=== PATIENT | male | born 1950 | race Caucasian/White ===

== ENCOUNTER 2020-06-02 06:17 | Outpatient (RCR) | payer MEDICARE, SELFPAY ==
[2020-06-02] MEDS: COVID-19 VACC, MRNA(PFIZER)/PF 30 MCG/0.3 ML SYRINGE IM (08:17)
[2020-06-23] MEDS: COVID-19 VACC, MRNA(PFIZER)/PF 30 MCG/0.3 ML SYRINGE IM (08:08)
== END 2020-09-01 23:59 ==
LOC: IMMUN 06:17
PROVIDERS: PCP Family Medicine; Referring Provider Family Medicine; Visit Provider Family Medicine
DX: Z23 Encounter for immunization (principal)
CPT/HCPCS: 0001A; 0002A; 91300

== ENCOUNTER → 2020-11-24 09:56 | Outpatient (CLI) | payer MEDICARE, SELFPAY ==
[2020-11-24 12:12] LABS: Absolute Lymphocyte Count 1.66 X10^3/uL (0.83-4.51); Absolute Neutrophil Count 3.1 X10^3/uL (2.0-7.7); Basophil# 0.05 X10^3/uL; Basophil% 0.9 % (0-1); Eosinophils% 1.9 % (0-5); Hematocrit 39.7 % (40-54); Hemoglobin 12.8 g/dL (13.0-16.5); Lymphocyte # 1.66 X10^3/ul (0.83-4.51); Mean Corp Hgb Conc 32.2 g/dL (32-36); Mean Corpuscular Hgb 30.3 pg (27.0-32.0); Mean Corpuscular Volume 93.9 fL (80-94); Mean Platelet Vol. 9.3 fl (6.2-12.0); Monocyte# 0.41 X10^3/uL; Monocyte% 7.7 % (0-10); NRBC Flagged by Analyzer 0 % (0-5); Neutrophil # 3.11 X10^3/uL (2.7-7.7); Neutrophil % 58.1 % (47-70); Platelet Count 356 K/mm3 (150-450); RBC Distribution Width CV 13.6 % (11.6-14.6); RBC Distribution Width SD 46.6 fl (35.1-43.9); Red Blood Count 4.23 M/mm3 (4.6-6.2); White Blood Count 5.4 K/mm3 (4.4-11.0)
[2020-11-24 12:31] LABS: AST(SGOT) 14 U/L (15-37); Alanine Aminotransfer ALT/SGPT 19 U/L (16-61); Albumin, Serum 3.8 g/dL (3.2-5.0); Alkaline Phosphatase 109 U/L (45-117); Anion Gap 2 (5-15); BUN 15 mg/dL (7-18); BUN/Creat Ratio 10.4 RATIO (10-20); Chloride 109 mmol/L (98-107); Cholesterol 193 mg/dL (200); Creatinine, Serum 1.44 mg/dL (0.70-1.30); EST Glomerular Filtration Rate 51 mL/min (>60); Est Glom Filt Rate - Afr Amer 62 mL/min (>60); Globulin 3.7 g/dL (2.2-4.2); Glucose 85 mg/dL (74-106); High Density Lipoprotein 54 mg/dL; Potassium 4.6 mmol/L (3.5-5.1); Protein, Total 7.5 g/dL (6.4-8.2); Sodium Level 141 mmol/L (136-145); Triglycerides 99 mg/dL; Very Low Density Lipoprotein 20 mg/dL (5-40)
== END ==
PROVIDERS: PCP Family Medicine; Visit Provider Family Medicine
DX: E66.3 Overweight (principal); Z13.1 Encounter for screening for diabetes mellitus; R10.9 Unspecified abdominal pain
CPT/HCPCS: 36415; 80053; 80061; 85025

== ENCOUNTER 2021-05-10 11:17 | Outpatient (CLI) | payer MEDICARE, SELFPAY ==
[2021-05-10 12:52] LABS: PSA,Total - Annual Screen 1.33 ng/mL (0.00-4.00)
== END 2021-05-10 23:59 | disposition home or self-care (01) ==
LOC: MFPLAB 11:18
PROVIDERS: Nurse Practitioner Family; PCP Family Medicine; Visit Provider Family Medicine
DX: Z12.5 Encounter for screening for malignant neoplasm of prostate (principal)
CPT/HCPCS: 36415; 84153; G0103

== ENCOUNTER 2022-12-18 14:32 | Emergency (ER) | payer MEDICARE, MEDICAID, SELFPAY ==
[2022-12-18 14:35] VITALS: BP 135/91; PULSE 83; RESP 18; TEMP 37.1; O2SAT 99; BMI 23.8
--- NOTE | 2022-12-18 15:01 | CT_ITS ---
STUDY: CT ABDOMEN AND PELVIS WITH CONTRAST REASON FOR EXAM: Male, 72 years old. abdominal pain RADIATION DOSAGE (If Supplied By Facility): CTDIvol = ( 15.48 ) mGy, DLP = ( 700.00 ) mGycm TECHNIQUE: Transaxial images were obtained from the dome of the diaphragm to the symphysis pubis without oral contrast. IV 100mL Isovue-370 was administered. Sagittal and coronal images were reconstructed. Individualized dose optimization techniques were used for this CT. COMPARISON: None. FINDINGS: The visualized lung bases are unremarkable. The visualized portions of the heart are within normal limits. Normal liver. Normal gallbladder and extrahepatic biliary system. Normal spleen. Normal pancreas. Normal bilateral adrenal glands. Bilateral nonobstructing renal stones. 2 mm obstructing stone at the left ureterovesical junction with mild ureteral dilatation and hydronephrosis. Normal visualized stomach. Normal small intestine. Normal colon. The appendix is visualized and appears normal. Normal abdominal aorta. Normal inferior vena cava. Normal retroperitoneum. Normal urinary bladder. There are prostatic calcifications. Normal abdominal wall. Normal osseous structures. CT/Abdomen/Pelvis W IV Cont ONLY IMPRESSION: 2 mm obstructing stone at the left ureterovesical junction with mild ureteral dilatation and hydronephrosis. Electronically Signed: Ferdinand Roberts MD at 17:10 EDT ,
--- NOTE | 2022-12-18 15:02 | EDS_ITS ---
HPI History of Present Illness Chief Complaint: Abd Pain Informant: patient and family Narrative Narrative: 32-year-old male presenting to the emergency room for the chief complaint of abdominal pain. Patient states he has had kidney stones in the past but not for at least 10 years. He notes over the past 4 weeks he has been dealing with increased gas and constipation. He has been treating at home with Gas-X and stool softeners. Had an appointment with his doctor but missed it. The patient notes that since this morning at around 0700 hrs. she has had pretty significant suprapubic left lower quadrant pain. He denies any melena/bright red blood. He denies any hematuria or testicular pain. He denies fevers. No nausea vomiting. Pain is nonradiating. He does feel bloated. He denies history of diverticulitis or colitis. His only abdominal surgery of note was in the 1970s for a kidney stone. [facility] Medical History (Updated 12/18/22 @ 17:[address] Primitivo Aviles DO) Kidney stone Home Medications docusate sodium 100 mg capsule (Colace) 100 mg PO DAILY #30 caps 12/18/22 [Rx Last Taken Unknown] oxycodone-acetaminophen 5 mg-325 mg tablet 1 tab PO Q6H PRN PRN Pain 3 days #12 TABLETS 12/18/22 [Rx Last Taken Unknown] Allergy/AdvReac Type Severity Reaction Status Date / Time Penicillins Allergy PT UNSURE Verified 12/18/22 14:34 OF REACTION Social History Smoking Status: Never smoker ROS ROS ED Constitutional Constitutional ED: Denies chills, fever(s) or weight loss Eyes Eyes: Denies change in vision or diplopia ENT ENT ED: Denies ear pain, rhinorrhea or sore throat Cardiovascular Cardiovascular: Denies chest pain, orthopnea, palpitations or racing heartbeat Respiratory/Chest Respiratory/Chest: Denies cough, dyspnea or orthopnea Gastrointestinal Gastrointestinal: Reports abdominal pain, constipation and nausea; Denies diarrhea, melena or vomiting Genitourinary Genitourinary ED: Denies dysuria, hematuria or urinary frequency Musculoskeletal Musculoskeletal: Denies arthralgias or myalgias Integumentary Denies abscess or rash Neurologic Neurologic: Denies headache(s) or weakness Psychiatric Psychiatric: Denies anxiety, depression, suicidal ideation or suicidal thoughts Endocrine Endocrinology: Denies polydipsia, polyphagia or polyuria Allergic/Immunologic Allergic/Immunologic ED: Denies mouth swelling, tongue swelling or urticaria EXAM Physical Exam Const Vital Signs: 12/18/22 14:35 12/18/22 18:03 Temperature 98.7 F Temperature Source Temporal Pulse Rate 83 80 Respiratory Rate 18 17 Blood Pressure 135/91 H 139/74 H Blood Pressure Mean 105 Pulse Ox 99 97 Oxygen Delivery Method Room Air Positive well nourished and well developed General Appearance ED: well developed HEENT Reports normocephalic, head/scalp atraumatic and moist mucous membranes Eyes PERRL and EOMs intact bilaterally Neck no lymphadenopathy, supple and no JVD Resp normal respiratory effort and clear to auscultation bilaterally Cardio regular rate, regular rhythm and no murmurs GI non-distended; Negative for hepatosplenomegaly or no masses Inspection: Negative for abdominal distention Auscultation: normoactive bowel sounds Palpation: soft, tender LLQ and suprapubic, guarding and rebound tenderness present Back/Spine no CVA tenderness and normal ROM Extremity normal to inspection General Extremety ED: Negative for edema General Extremity: Negative for edema Neuro oriented x3 and CN's II-XII intact bilaterally Sensorium / Orientation: alert Motor Exam: strength 5/5 throughout Psych mental status grossly normal Mood & Affect: Negative for depressed or tearful Skin no rashes or lesions noted and no wounds MDM MDM MDM Narrative Medical decision making narrative: Patient's white count is 8.3 with a hemoglobin of 12.6. Creatinine 1.59 with a BUN of 23. Lipase is 51 liver enzymes normal. Patient received morphine Zofran and fluids. CT of the abdomen pelvis with IV contrast was obtained. This was consistent with a distal 2 mm left ureteral stone with some mild hydronephrosis hydroureter. Patient was reassessed and is doing better. Discussed with the patient follow- up for the kidney stone but also for his constipation. I suggested he start with a daily Colace and adjust therapy from there. He should follow-up with primary care. I gave him urologic follow-up. I did advise that perhaps she should visit for a colonoscopy. Lab Data Attestation: I reviewed the patient's lab results. Labs: Laboratory Results - last 24 hr 12/18/22 12/18/22 15:17 17:20 WBC 8.3 RBC 4.14 L Hgb 12.6 L Hct 38.6 L MCV 93.2 MCH 30.4 MCHC 32.6 RDW Std Deviation 46.2 H RDW Coeff of Yoel 13.5 Plt Count 364 MPV 8.8 Immature Gran % (Auto) 0.200 Neut % (Auto) 63.1 Lymph % (Auto) 27.0 [place] % (Auto) 8.3 Eos % (Auto) 0.8 Baso % (Auto) 0.6 Absolute Neuts (auto) 5.2 Absolute Lymphs (auto) 2.24 Nucleated RBC % 0 Sodium 142 Potassium 4.2 Chloride 110 H Carbon Dioxide 26.0 Anion Gap 6 BUN 23 H Creatinine 1.59 H Estim Creat Clear Calc 39.43 Est GFR (MDRD) Af Amer 55 L Est GFR (MDRD) Non-Af 45 L BUN/Creatinine Ratio 14.5 Glucose 86 Calcium 8.8 Total Bilirubin 0.30 Direct Bilirubin 0.11 AST 24 ALT 30 Alkaline Phosphatase 106 Total Protein 7.0 Albumin 3.5 Globulin 3.5 Lipase 51 Urine Color Yellow Urine Clarity Sl. Cloudy Urine pH 7.0 Ur Specific [place] 1.005 Urine Protein 15 H Urine Glucose (UA) Normal Urine Ketones 5 H Urine Occult Blood 150 H Urine Nitrite Negative Urine Bilirubin Negative Urine Urobilinogen Normal Ur Leukocyte Esterase Negative Urine RBC 10-25 SEEN Urine WBC 0 SEEN Ur Squamous Epith Cells 0 SEEN Urine Bacteria 0 SEEN Urine Mucus 0 SEEN Radiography Diagnostic Testing: Clinical Impression(s) from Imaging Studies Abdomen/Pelvis CT 12/18/22 15:01 IMPRESSION: 2 mm obstructing stone at the left ureterovesical junction with mild ureteral dilatation and hydronephrosis. Electronically Signed: Ferdinand Roberts MD at 17:10 EDT , Discharge Plan Triage Chief Complaint: Abd Pain ED Provider: Primitivo Aviles Dx/Rx/DC Orders Clinical Impression: Abdominal pain, acute, Ureterolithiasis, Constipation Instructions: ED Kidney Stone w/ Colic Prescriptions: New docusate sodium [Colace] 100 mg capsule 100 mg PO DAILY Qty: 30 0RF oxycodone-acetaminophen [oxycodone-acetaminophen] 5-325 mg tablet 1 tab PO Q6H PRN PRN (Reason: Pain) 3 Days Qty: 12 0RF Primary Care Provider: Care Physician,No Primary Referrals: Chencho Doyle MD [Med Staff - Active Staff] - 1 Week if not improving (for urology for the kidney stone ) Santhosh Toledo MD [Non-Staff] - As soon as possible Disposition Disposition: Home, Self Care Discharge Date/Time: 12/18/22 18:22
[2022-12-18] MEDS: 0.9% Normal Saline (1000mL) 1,000 ML 1000 ML IV (15:18)
[2022-12-18] MEDS: Ondansetron 4 MG/2 ML Vial IV (15:18)
[2022-12-18 15:26] LABS: Absolute Lymphocyte Count 2.24 X10^3/uL (0.83-4.51); Absolute Neutrophil Count 5.2 X10^3/uL (2.0-7.7); Basophil# 0.05 X10^3/uL; Basophil% 0.6 % (0-1); Eosinophil# 0.07 X10^3/uL; Eosinophils% 0.8 % (0-5); Hematocrit 38.6 % (40-54); Hemoglobin 12.6 g/dL (13.0-16.5); Lymphocyte # 2.24 X10^3/ul (0.83-4.51); Mean Corp Hgb Conc 32.6 g/dL (32-36); Mean Corpuscular Hgb 30.4 pg (27.0-32.0); Mean Corpuscular Volume 93.2 fL (80-94); Mean Platelet Vol. 8.8 fl (6.2-12.0); Monocyte# 0.69 X10^3/uL; Monocyte% 8.3 % (0-10); NRBC Flagged by Analyzer 0 % (0-5); Neutrophil # 5.24 X10^3/uL (2.7-7.7); Neutrophil % 63.1 % (47-70); Platelet Count 364 K/mm3 (150-450); RBC Distribution Width CV 13.5 % (11.6-14.6); RBC Distribution Width SD 46.2 fl (35.1-43.9); Red Blood Count 4.14 M/mm3 (4.6-6.2); White Blood Count 8.3 K/mm3 (4.4-11.0)
[2022-12-18 15:38] LABS: AST(SGOT) 24 U/L (15-37); Alanine Aminotransfer ALT/SGPT 30 U/L (16-61); Albumin, Serum 3.5 g/dL (3.2-5.0); Alkaline Phosphatase 106 U/L (45-117); Anion Gap 6 (5-15); BUN 23 mg/dL (7-18); BUN/Creat Ratio 14.5 RATIO (10-20); Bilirubin, Direct 0.11 mg/dL (0.00-0.30); Calcium,Total 8.8 mg/dL (8.5-10.1); Chloride 110 mmol/L (98-107); Creatinine, Serum 1.59 mg/dL (0.70-1.30); EST Glomerular Filtration Rate 45 mL/min (>60); Est Glom Filt Rate - Afr Amer 55 mL/min (>60); Estimated Creatinine Clearance 39.43 ml/min; Globulin 3.5 g/dL (2.2-4.2); Glucose 86 mg/dL (74-106); Lipase 51 U/L (13-75); Potassium 4.2 mmol/L (3.5-5.1); Sodium Level 142 mmol/L (136-145)
[2022-12-18 17:37] LABS: Bacteria 0 SEEN /hpf (None Seen); Mucous, Urine 0 SEEN /hpf (<or=2+); Squamous Epithelial Cells - UA 0 SEEN /hpf (0-5); White Blood Cells 0 SEEN /hpf (0-5)
[2022-12-18 17:43] LABS: Color, Urine Yellow (Yellow); Glucose, Dipstick Normal (Normal); Ketone-Dipstick 5 mg/dl (Negative); Leukocyte Esterase-Dipstick Negative /ul (Negative); Nitrite-Dipstick Negative (Negative); Occult Blood-Urine 150 /ul (Negative); Protein-Dipstick 15 mg/dl (Negative); Specific Gravity, Urine 1.005 (1.002-1.030); Urine Bilirubin Dipstick Negative (Negative); Urine Clarity Sl. Cloudy (Clear); Urine Urobilinogen Normal (Normal)
[2022-12-18 18:03] VITALS: BP 139/74; PULSE 80; RESP 17; O2SAT 97
[2022-12-18 18:20] LABS: Red Blood Cells-Urine 10-25 SEEN /hpf (0-5)
== END 2022-12-18 18:22 | disposition home or self-care (01) ==
PROVIDERS: Emergency Provider Emergency Medicine; Visit Provider Emergency Medicine
DX: R10.9 Unspecified abdominal pain (principal); N13.2 Hydronephrosis with renal and ureteral calculous obstruction; K59.00 Constipation, unspecified
CPT/HCPCS: 74177; 80048; 80076; 81001; 83690; 85025; 96361; 96374; 99283; J7030; A4216; J2405

== ENCOUNTER 2022-12-20 13:13 | Emergency (ER) | payer MEDICARE, MEDICAID, SELFPAY ==
[2022-12-20 13:14] VITALS: BP 135/79; PULSE 95; RESP 20; TEMP 36.6; O2SAT 98
--- NOTE | 2022-12-20 13:52 | ED.VIS.GI ---
HPI HPI - GI History of Present Illness Chief Complaint: Flank Pain Detail of Chief Complaint: Left flank pain. 2 mm kidney stone in the left diagnosed yesterday. Informant: patient and family Abdominal Pain/Flank Pain Onset: Days Context: Gradual Onset Timing: Continuous Location: Left Flank Current Severity: Moderate Maximum Severity: Moderate Worsened by: Nothing Relieved by: Nothing Nausea/Vomiting/Emesis GI Symptom: Positive for Nausea and Vomiting Onset: Today and Yesterday Severity: Mild Diarrhea/Melena/Hematochezia GI Symptom: Negative for Diarrhea, Melena or Hematochezia Associated Symptoms Associated Symptoms: Negative for Dysuria, Frequency, Hematuria or Urgency Narrative Narrative: 72-year-old male history of kidney stones. Said left flank pain last several days. Was seen yesterday diagnosed with a left ureteral 2 mm calculi. States the pain medication is not controlling his pain. He is also had some nausea and vomiting. He has had a history of kidney stones in the past. He denies any fever. No gross hematuria. Prior similar symptoms: Yes Recent Illness/Hospitalization: No PFSH PFSH Medical History Kidney stone Home Medications docusate sodium 100 mg capsule (Colace) 100 mg PO DAILY #30 caps 12/18/22 [Rx Last Taken Unknown] oxycodone-acetaminophen 5 mg-325 mg tablet 1 tab PO Q6H PRN PRN Pain 3 days #12 TABLETS 12/18/22 [Rx Last Taken Unknown] ondansetron 4 mg disintegrating tablet 4 mg PO Q8H PRN PRN Nausea #10 tabs 12/20/22 [Rx Last Taken Unknown] Allergy/AdvReac Type Severity Reaction Status Date / Time Penicillins Allergy PT UNSURE Verified 12/20/22 13:15 OF REACTION Social History Smoking Status: Never smoker ROS ROS ED ROS Narrative Left flank pain. Nausea and vomiting. Review of Systems ROS Unobtainable: Denies due to encephalopathy Constitutional Constitutional ED: Denies chills or fever(s) ENT ENT ED: Denies ear pain Cardiovascular Cardiovascular: Denies chest pain Respiratory/Chest Respiratory/Chest: Denies cough or dyspnea Gastrointestinal Gastrointestinal: Reports nausea and vomiting; Denies abdominal pain, constipation, diarrhea or melena Genitourinary Genitourinary ED: Denies dysuria or hematuria Musculoskeletal Musculoskeletal: Reports back pain; Denies arthralgias Integumentary Denies abscess or Abrasions Neurologic Neurologic: Denies headache(s) Psychiatric Psychiatric: Denies anxiety or depression Endocrine Endocrinology: Denies polydipsia Hematologic/Lymphatic Hematologic/Lymphatic: Denies easy bleeding Allergic/Immunologic Allergic/Immunologic ED: Denies mouth swelling, tongue swelling or urticaria EXAM Physical Exam Narrative Exam Narrative: 72-year-old male complaining of pain. Vital signs stable afebrile. HEENT exam unremarkable. Neck nontender. Lungs clear to auscultation bilateral. Heart regular rhythm no murmur. Abdomen soft nondistended normal bowel sounds no peritoneal signs. Moving all 4 extremities. Calves nontender tender no edema. Neurologically is awake and alert. Complains of left flank pain is not reproducible. Const Vital Signs: 12/20/22 13:14 12/20/22 13:58 Temperature 97.8 F 98.1 F Temperature Source Temporal Temporal Pulse Rate 95 80 Respiratory Rate 20 H 24 H Blood Pressure 135/79 H 140/78 H Blood Pressure Mean 97 98 Pulse Ox 98 97 Oxygen Delivery Method Room Air Room Air Positive well nourished and well developed; Negative for obese, cachectic, contractures or unkempt Constitutional Narrative: Complaining of left flank pain. General Appearance ED: well developed and NAD; Negative for unkempt, cachectic, contractures or pallor Nutritional Appearance: Negative for cachectic or obese HEENT Reports moist mucous membranes normocephalic and atraumatic; Negative for trauma or tenderness Eyes PERRL and EOMs intact bilaterally Neck no lymphadenopathy, supple and no JVD General: Negative for tenderness Carotids: Negative for other Lymph Lymphatic: Negative for other Resp normal respiratory effort and clear to auscultation bilaterally Effort and Inspection: Negative for respiratory distress Auscultation: Negative for rales, rhonchi or wheezes Cardio regular rate, regular rhythm, S1 normal heart sound, S2 normal heart sound and no murmurs Rate: Negative for bradycardia or tachycardic Rhythm: Negative for abnormal rhythm GI non-tender, non-distended and no masses Inspection: Negative for abdominal distention Auscultation: normoactive bowel sounds Palpation: soft; Negative for tender, guarding, rigid, hernia, mass, pulsatile mass or rebound tenderness present Back/Spine no CVA tenderness General Back: Negative for CVA tenderness Cervical Spine: Negative for cervical spine tenderness Thoracic Spine / Upper Back: Negative for thoracic spinal tenderness Lumbar Spine / Lower Back: Negative for lumbar spinal tenderness Extremity full ROM General Extremety ED: Negative for edema or tenderness General Extremity: Negative for edema Neuro CN's II-XII intact bilaterally, moves all extremities and no sensory deficits noted Sensorium / Orientation: alert, oriented to person, oriented to place and oriented to time; Negative for orientation impaired, confused, lethargic or stuporous Motor Exam: strength 5/5 throughout Psych mental status grossly normal and thought process normal Appearance: Negative for unkempt Attitude: No agitated Mood & Affect: Negative for depressed, anxious or tearful Skin no wounds General Skin Exam: Negative for jaundice or pallor Lesions: no lesions Rashes: no rashes Trauma: Negative for abrasion Nails: Negative for discolored MDM MDM MDM Narrative Medical decision making narrative: 72-year-old male with a known 2 mm kidney stone in the left complaining of pain. He will be treated with Dilaudid and Zofran. Repeat labs. I do not think he needs re-imaged because he just had a CAT scan yesterday. Due to his CAT scan read and look to the film myself. Exam patient is doing better 4:25 PM. I went over all his test results. He has chronic renal insufficiency. He will be discharged home with Zofran for nausea. He already has oxycodone and stool softener at home. Outpatient follow-up with the urologist. History & Record Review Discussion w/independent historian: Patient and Family Additional record(s) reviewed:: Prior inpatient record, Prior outpatient record, Prior ED visit and Prior labs Lab Data Attestation: I reviewed the patient's lab results. Lab results narrative: CBC shows a white count of 10. H&H 12.9 and 40. Platelets 383. Chemistries show gap of 7. BUN of 20 creatinine 1.72. Prior creatinines 1.59. Glucose 108. Labs: Laboratory Results - last 24 hr 12/20/22 13:30 WBC 10.6 RBC 4.31 L Hgb 12.9 L Hct 40.4 MCV 93.7 MCH 29.9 MCHC 31.9 L RDW Std Deviation 46.8 H RDW Coeff of Yoel 13.6 Plt Count 383 MPV 9.1 Immature Gran % (Auto) 0.500 Neut % (Auto) 77.6 H Lymph % (Auto) 14.7 L [place] % (Auto) 6.3 Eos % (Auto) 0.5 Baso % (Auto) 0.4 Absolute Neuts (auto) 8.2 H Absolute Lymphs (auto) 1.55 Nucleated RBC % 0 Sodium 139 Potassium 3.8 Chloride 105 Carbon Dioxide 27.0 Anion Gap 7 BUN 20 H Creatinine 1.72 H Est GFR (MDRD) Af Amer 50 L Est GFR (MDRD) Non-Af 41 L BUN/Creatinine Ratio 11.6 Glucose 108 H Calcium 8.9 Discharge Plan Triage Chief Complaint: Flank Pain ED Provider: James Whitehead Dx/Rx/DC Orders Instructions: ED Kidney Stone w/ Colic, ED Renal Insufficiency Prescriptions: New ondansetron 4 mg tablet,disintegrating 4 mg PO Q8H PRN PRN (Reason: Nausea) Qty: 10 0RF No Action docusate sodium [Colace] 100 mg capsule 100 mg PO DAILY Qty: 30 0RF oxycodone-acetaminophen [oxycodone-acetaminophen] 5-325 mg tablet 1 tab PO Q6H PRN PRN (Reason: Pain) 3 Days Qty: 12 0RF Primary Care Provider: Care Physician,No Primary Referrals: Chencho Doyle MD [Med Staff - Active Staff] - 3-5 Days if not improving Care Physician,No Primary [Primary Care Provider] - Activity Restrictions/Additional Instructions: Plenty of fluids such as water, Gatorade or 7-Up. Fiber to help prevent constipation along with a stool softener you are prescribed today. Zofran as needed for nausea. Your oxycodone prescription you get the other day for pain. Follow-up with the urologist, Dr. Winston Doyle, if not improving. Return to the emergency department if worsening pain, fever or intractable vomiting. Disposition Disposition: Home, Self Care
[2022-12-20] MEDS: Ondansetron 4 MG/2 ML Vial IV ×2 (13:54→16:34)
[2022-12-20] MEDS: HYDROmorphone 1 MG/ML Syringe IV (13:54)
[2022-12-20 13:58] VITALS: BP 140/78; PULSE 80; RESP 24; TEMP 36.7; O2SAT 97
[2022-12-20 14:03] LABS: Absolute Lymphocyte Count 1.55 X10^3/uL (0.83-4.51); Absolute Neutrophil Count 8.2 X10^3/uL (2.0-7.7); Basophil# 0.04 X10^3/uL; Basophil% 0.4 % (0-1); Eosinophil# 0.05 X10^3/uL; Eosinophils% 0.5 % (0-5); Hematocrit 40.4 % (40-54); Hemoglobin 12.9 g/dL (13.0-16.5); Lymphocyte # 1.55 X10^3/ul (0.83-4.51); Lymphocyte % 14.7 % (19-41); Mean Corp Hgb Conc 31.9 g/dL (32-36); Mean Corpuscular Hgb 29.9 pg (27.0-32.0); Mean Corpuscular Volume 93.7 fL (80-94); Mean Platelet Vol. 9.1 fl (6.2-12.0); Monocyte# 0.66 X10^3/uL; Monocyte% 6.3 % (0-10); NRBC Flagged by Analyzer 0 % (0-5); Neutrophil % 77.6 % (47-70); Platelet Count 383 K/mm3 (150-450); RBC Distribution Width CV 13.6 % (11.6-14.6); RBC Distribution Width SD 46.8 fl (35.1-43.9); Red Blood Count 4.31 M/mm3 (4.6-6.2); White Blood Count 10.6 K/mm3 (4.4-11.0)
[2022-12-20 14:08] LABS: Anion Gap 7 (5-15); BUN 20 mg/dL (7-18); BUN/Creat Ratio 11.6 RATIO (10-20); Calcium,Total 8.9 mg/dL (8.5-10.1); Chloride 105 mmol/L (98-107); Creatinine, Serum 1.72 mg/dL (0.70-1.30); EST Glomerular Filtration Rate 41 mL/min (>60); Est Glom Filt Rate - Afr Amer 50 mL/min (>60); Glucose 108 mg/dL (74-106); Potassium 3.8 mmol/L (3.5-5.1); Sodium Level 139 mmol/L (136-145)
[2022-12-20] MEDS: morphine 8 MG/ML Syringe 6 MG IV (16:35)
[2022-12-20 16:40] VITALS: BMI 23.9
[2022-12-20 16:43] VITALS: BP 110/66; PULSE 69; RESP 16; O2SAT 97
[2022-12-20 16:43] LABS: Bacteria 0 SEEN /hpf (None Seen); Mucous, Urine 0 SEEN /hpf (<or=2+)
[2022-12-20 16:46] LABS: Color, Urine Yellow (Yellow); Glucose, Dipstick Normal (Normal); Leukocyte Esterase-Dipstick Negative /ul (Negative); Nitrite-Dipstick Negative (Negative); Occult Blood-Urine 50 /ul (Negative); Protein-Dipstick 15 mg/dl (Negative); Specific Gravity, Urine 1.025 (1.002-1.030); Urine Bilirubin Dipstick Negative (Negative); Urine Clarity Clear (Clear); Urine Urobilinogen Normal (Normal)
[2022-12-20 16:52] LABS: Ketone-Dipstick 150 mg/dl (Negative)
[2022-12-20 16:56] LABS: Red Blood Cells-Urine 0-5 SEEN /hpf (0-5)
[2022-12-20 16:57] LABS: Squamous Epithelial Cells - UA 0 SEEN /hpf (0-5); White Blood Cells 0-5 SEEN /hpf (0-5)
== END 2022-12-20 17:10 | disposition home or self-care (01) ==
PROVIDERS: Emergency Provider Emergency Medicine; Visit Provider Emergency Medicine
DX: N20.1 Calculus of ureter (principal); N18.9 Chronic kidney disease, unspecified
CPT/HCPCS: 80048; 81001; 85025; 96374; 96375; 96376; 99282; A4216; J2405

== ENCOUNTER → 2023-01-19 | Outpatient (CLI) | payer MEDICARE, MEDICAID, SELFPAY ==
[2023-01-27 10:08] LABS: Source Not Provided
== END | disposition home or self-care (01) ==
PROVIDERS: PCP Family Medicine; Referring Provider Family Medicine; Visit Provider Family Medicine
DX: N20.0 Calculus of kidney (principal)
CPT/HCPCS: 82360

== ENCOUNTER → 2024-01-23 | Outpatient (CLI) | payer MEDICARE, MEDICAID, SELFPAY ==
--- NOTE | 2024-01-23 09:57 | ECHOD_ITS ---
Reason For Study: AMAUROSIS FUGAX Procedure This was a 2D Doppler, Color Flow transthoracic echocardiogram. The study was technically difficult. Exam performed in department. Left Ventricle Normal LV size. The left ventricular ejection fraction is 55 %. Stage 1 diastolic dysfunction. No regional wall motion abnormalities noted. Right Ventricle Normal RV size. Normal systolic function. Atria Normal left atrium. Normal right atrium. Bubble contrast study negative for right to left interatrial shunt. Mitral Valve There is mild mitral annular calcification. Tricuspid Valve Normal tricuspid valve. Aortic Valve Trisinus/trileaflet aortic valve. Severe focal aortic valve calcification. Peak aortic valve gradient 27 mmHg. Mean aortic valve gradient 16 mmHg. Mild to moderate aortic stenosis. Pulmonic Valve Normal pulmonic valve. Great Vessels Calcified aortic root. Mildly dilated aortic root. The pulmonary artery is normal size. Inferior vena cava collapse with respiration. Pericardium/Pleural No pericardial effusion. Medication Performed a rapid injection of agitated mix of 9 cc saline and 1cc air to assess for atrial septal defect. MMode/2D Measurements & Calculations LVIDd: 3.7 cm IVSd: 1.2 cm LVOT diam: 2.4 cm LVIDs: 2.2 cm LVPWd: 1.0 cm RVDd: 3.2 cm FS: 41.2 % LVOT area: 4.6 cm2 asc Aorta Diam: 4.1 cm LAV(MOD-bp): 17.1 ml LVAd ap4: 17.3 cm2 LAV(MOD-bp) Indexed: 9.6 ml/m2 LVLd ap4: 6.6 cm LAV(MOD-sp2): 26.6 ml EDV(MOD-sp4): 36.7 ml LAV(MOD-sp4): 11.0 ml EDV(sp4-el): 38.5 ml LVAs ap4: 10.5 cm2 LVLs ap4: 5.8 cm ESV(MOD-sp4): 15.9 ml ESV(sp4-el): 16.3 ml EF(MOD-sp4): 56.7 % EF(sp4-el): 57.5 % LVAd ap2: 19.2 cm2 SV(MOD-sp4): 20.8 ml SV(MOD-sp2): 24.1 ml LVLd ap2: 7.2 cm SI(MOD-sp4): 11.7 ml/m2 SI(MOD-sp2): 13.6 ml/m2 EDV(MOD-sp2): 43.1 ml EDV(sp2-el): 43.5 ml LVAs ap2: 11.5 cm2 LVLs ap2: 5.9 cm ESV(MOD-sp2): 19.0 ml ESV(sp2-el): 18.9 ml EF(MOD-sp2): 55.9 % SV(sp4-el): 22.2 ml Ao sinus diam: 4.[address] Junction: 3.5 cm LA dimension(2D): 2.6 cm LA A4 area: 7.5 cm2 RA A4 area: 6.6 cm2 TAPSE: 1.3 cm Time Measurements MV dec time: 0.28 sec Doppler Measurements & Calculations MV E max beny: 57.3 cm/sec Lat Peak E' Beny: 11.4 cm/sec Med Peak E' Beny: 8.1 cm/sec MV A max beny: 67.6 cm/sec E/E' lat: 5.0 E/E' med: 7.1 MV E/A: 0.85 MV dec slope: 206.4 cm/sec2 Ao V2 max: 259.3 cm/sec LV V1 max: 105.0 cm/sec Ao max P.1 mmHg LV V1 max P.4 mmHg Ao V2 mean: 191.8 cm/sec LV V1 mean P.4 mmHg Ao mean P.1 mmHg LV V1 mean: 72.8 cm/sec Ao V2 VTI: 48.7 cm LV V1 VTI: 18.5 cm AV (velocity ratio): 0.38 JAMES(I,D): 1.8 cm2 JAMES(V,D): 1.9 cm2 SV(LVOT): 86.0 ml PA V2 max: 56.2 cm/sec PA max PG (full): 0.34 mmHg ECHO/Echo Complete Interpretation Summary The left ventricular ejection fraction is 55 %. Stage 1 diastolic dysfunction. Severe focal aortic valve calcification. Mean aortic valve gradient 16 mmHg. Mild to moderate aortic stenosis. Normal LV size. Ordering Physician: Maxwell Madison Referring Physician: Maxwell Madison Performed By: Zelda Link RDCS
--- NOTE | 2024-01-23 09:58 | CDU_ITS ---
Reason For Study: Amaurosis Fugax Rt. Velocities/BP Lt. Velocities/BP Prox CCA 85.3/28.1 cm/sec. Prox CCA 87.9/32.7 cm/sec. Mid CCA 77.1/25.1 cm/sec. Mid CCA 79.7/33.0 cm/sec. Dist CCA 79.0/28.9 cm/sec. Dist CCA 69.9/31.8 cm/sec. Prox ICA 63.3/18.0 cm/sec. Prox ICA 46.1/26.1 cm/sec. Mid ICA 51.1/23.2 cm/sec. Mid ICA 58.4/29.6 cm/sec. Dist ICA 48.5/21.5 cm/sec. Dist ICA 39.1/19.1 cm/sec. Rt. ICA/CCA = 0.8. Lt. ICA/CCA = 0.7. Prox ECA 79.8/20.4 cm/sec. Prox ECA 71.4/16.5 cm/sec. Rt. Vert. 31.3/13.0 cm/sec. Lt. Vert. 27.5/12.5 cm/sec. Right Extracranial There is intimal thickening but no significant atherosclerotic plaque noted in the right common carotid artery. There is intimal thickening but no significant atherosclerotic plaque noted in the right internal carotid artery. There is intimal thickening but no significant atherosclerotic plaque noted in the right external carotid artery. Antegrade flow is noted in the right vertebral artery. There is intimal thickening but no significant atherosclerotic plaque noted in the right bulb. Left Extracranial There is intimal thickening but no significant atherosclerotic plaque noted in the left common carotid artery. There is intimal thickening but no significant atherosclerotic plaque noted in the left internal carotid artery. There is intimal thickening but no significant atherosclerotic plaque noted in the left external carotid artery. Antegrade flow is noted in the left vertebral artery. There is heterogeneous, irregular atherosclerotic plaque noted in the left bulb. Procedure Carotid Duplex [id number]. This is a Carotid Duplex examination using B-mode, color flow and specral Doppler. The exam was diagnostic. Exam performed in department. VL/Carotid Duplex Ultrasound Interpretation Summary Normal right extracranial internal carotid. Normal left extracranial internal carotid. Patent and antegrade vertebrals bilaterally. Ordering Physician: Maxwell Madison Referring Physician: Beti Smith Performed By: James Perla RVT
== END | disposition home or self-care (01) ==
LOC: CVS 09:54
PROVIDERS: PCP Family Medicine; Referring Provider Ophthalmology; Visit Provider Ophthalmology
DX: G45.3 Amaurosis fugax (principal)
CPT/HCPCS: 93306; 93880; A4216

== ENCOUNTER → 2024-02-14 | Outpatient (CLI) | payer MEDICARE, MEDICAID, SELFPAY ==
[2024-02-14 13:37] LABS: Absolute Lymphocyte Count 1.98 X10^3/uL (0.83-4.51); Basophil# 0.04 X10^3/uL; Basophil% 0.6 % (0-1); Eosinophil# 0.06 X10^3/uL; Eosinophils% 0.9 % (0-5); Hematocrit 38.1 % (40-54); Hemoglobin 12.5 g/dL (13.0-16.5); Lymphocyte # 1.98 X10^3/ul (0.83-4.51); Lymphocyte % 30.6 % (19-41); Mean Corp Hgb Conc 32.8 g/dL (32-36); Mean Corpuscular Hgb 30.8 pg (27.0-32.0); Mean Corpuscular Volume 93.8 fL (80-94); Mean Platelet Vol. 9.1 fl (6.2-12.0); Monocyte# 0.39 X10^3/uL; NRBC Flagged by Analyzer 0 % (0-5); Neutrophil # 3.98 X10^3/uL (2.7-7.7); Neutrophil % 61.6 % (47-70); Platelet Count 350 K/mm3 (150-450); RBC Distribution Width SD 47.9 fl (35.1-43.9); Red Blood Count 4.06 M/mm3 (4.6-6.2); White Blood Count 6.5 K/mm3 (4.4-11.0)
[2024-02-14 14:19] LABS: ALB/GLOB Ratio 1.1 RATIO (0.9-2.4); AST(SGOT) 24 U/L (15-37); Alanine Aminotransfer ALT/SGPT 29 U/L (16-61); Albumin, Serum 3.8 g/dL (3.2-5.0); Alkaline Phosphatase 112 U/L (45-117); Anion Gap 3 (5-15); BUN 23 mg/dL (7-18); BUN/Creat Ratio 17.2 RATIO (10-20); Calcium,Total 9.2 mg/dL (8.5-10.1); Chloride 106 mmol/L (98-107); Cholesterol 182 mg/dL (200); Creatinine, Serum 1.34 mg/dL (0.70-1.30); EST Glomerular Filtration Rate 55 mL/min (>60); Est Glom Filt Rate - Afr Amer 67 mL/min (>60); Globulin 3.5 g/dL (2.2-4.2); Glucose 92 mg/dL (74-106); High Density Lipoprotein 59 mg/dL; Potassium 4.1 mmol/L (3.5-5.1); Protein, Total 7.3 g/dL (6.4-8.2); Sodium Level 139 mmol/L (136-145); Triglycerides 127 mg/dL; Very Low Density Lipoprotein 25 mg/dL (5-40)
== END | disposition home or self-care (01) ==
LOC: LAB 12:03
PROVIDERS: PCP Family Medicine; Referring Provider Internal Medicine Cardiovascular Disease; Visit Provider Internal Medicine Cardiovascular Disease
DX: E78.5 Hyperlipidemia, unspecified (principal); R06.02 Shortness of breath; R42 Dizziness and giddiness; R53.83 Other fatigue
CPT/HCPCS: 36415; 80053; 80061; 85025